=== PATIENT | male | born 1995 | race Caucasian/White ===

== ENCOUNTER 2025-03-12 14:00 | Emergency (ER) | payer MEDICAID ==
[~2025-03-12] VITALS: Ht 175.3 cm; Wt 111.0 kg
[2025-03-12 14:11] VITALS: O2SAT 98
[2025-03-12] MEDS ORDERED: NAPR-1176 PO (17:04)
[2025-03-12] MEDS ORDERED: CYCL10TA21 MT (17:04)
[2025-03-12] MEDS: CYCLOBENZAPRINE 10MG TABLET PO ONE (17:10)
[2025-03-12] MEDS: KETOROLAC 30MG/ML VIAL IM ONE (17:11)
[2025-03-12 17:14] VITALS: BP 126/89; PULSE 100; RESP 18; TEMP 36.9; O2SAT 98
== END 2025-03-12 17:15 | disposition home or self-care (01) ==
LOC: ER 14:00
DX: M54.50 Low back pain, unspecified (principal); Z79.899 Other long term (current) drug therapy
CPT/HCPCS: 96372; 99283; J1885; Z7610 ×2

== ENCOUNTER 2025-05-09 03:27 | Emergency (ER) | payer SELFPAY ==
[~2025-05-09] VITALS: Ht 175.3 cm; Wt 111.6 kg
[~2025-05-09 03:27] MED LIST: CYCL10TA21 MT; NAPR-1176 PO
[2025-05-09 03:46] VITALS: O2SAT 99
[2025-05-09] MEDS: KETOROLAC 15MG/ML VIAL IM ONE (05:01)
[2025-05-09] MEDS ORDERED: NAPR-1176 MT (05:40)
[2025-05-09] MEDS ORDERED: LIDO-53 TP (05:40)
[2025-05-09 06:52] VITALS: BP 141/106; PULSE 57; RESP 15; TEMP 36.8; O2SAT 100
== END 2025-05-09 06:56 | disposition home or self-care (01) ==
LOC: ER 03:27
DX: M25.562 Pain in left knee (principal); Z79.1 Long term (current) use of non-steroidal anti-inflammatories (NSAID)
CPT/HCPCS: 99283; 73562; 96372; J1885